=== PATIENT | female | born 1975 | race Two or more races ===

== ENCOUNTER 2020-11-23 05:56 | Emergency (ER) | payer OTHER ==
[~2020-11-23] VITALS: Ht 165.1 cm; Wt 73.5 kg
[2020-11-23] MEDS ORDERED: COZAAR50 MG (06:12)
[2020-11-23] MEDS ORDERED: INTESTINEX680 M1 PO (12:58)
[2020-11-23] MEDS ORDERED: AMOX-CLAV 875-1 EAC1 PO (12:58)
[2020-11-23] MEDS ORDERED: DICLOFENAC POTA50 MG PO (12:58)
== END 2020-11-23 13:26 ==
LOC: ER 05:56
DX: N61.1 Abscess of the breast and nipple (principal); N64.4 Mastodynia

== ENCOUNTER 2021-06-11 11:16 | Emergency (ER) | payer OTHER ==
[~2021-06-11] VITALS: Ht 152.4 cm; Wt 72.6 kg
[~2021-06-11 11:16] MED LIST: AMOX-CLAV 875-1 EAC1 PO; COZAAR50 MG; DICLOFENAC POTA50 MG PO; INTESTINEX680 M1 PO
== END 2021-06-11 14:18 | disposition home or self-care (01) ==
LOC: ER 11:16
DX: L02.91 Cutaneous abscess, unspecified (principal); N61.0 Mastitis without abscess